=== PATIENT | female | born 1975 | race Caucasian/White ===

== ENCOUNTER 2016-10-06 13:35 | Emergency (ER) | payer SELFPAY | END 2016-10-06 15:02 | disposition home or self-care (01) | LOC: MADERS 13:35 | DX: J02.9 Acute pharyngitis, unspecified (principal); J30.1 Allergic rhinitis due to pollen; F17.210 Nicotine dependence, cigarettes, uncomplicated | CPT/HCPCS: 87081; 87430; 99283 ==

== ENCOUNTER 2016-12-09 10:11 | Emergency (ER) | payer MEDICAID, SELFPAY ==
[2016-12-09] MEDS ORDERED: Naproxen 500 MG TAB ONE (10:33)
[2016-12-09] MEDS ORDERED: AMOXicillin 250 MG CAP ONE (10:33)
== END 2016-12-09 10:40 | disposition home or self-care (01) ==
LOC: MADERS 10:11
DX: K04.7 Periapical abscess without sinus (principal); F17.210 Nicotine dependence, cigarettes, uncomplicated
CPT/HCPCS: 99283

== ENCOUNTER 2018-08-19 11:16 | Emergency (ER) | payer SELFPAY ==
[2018-08-19 11:56] LABS: Bilirubin Negative (Negative); Blood, Urine Large (Negative); Clarity Clear (Clear); Glucose, Urine (Dipstick) Negative (Negative); Leukocyte Negative (Negative); Nitrite Negative (Negative); Protein, Urine (Dipstick) Negative (Neg-Trace); Specific Gravity, Urine 1.015 (1.005-1.030); Urobilinogen 0.2 mg/dL (0.2-1.0)
[2018-08-19 12:14] LABS: Bacteria/HPF Rare-Few HPF (None Seen); RBC/HPF 0-3 HPF (0-3); Squamous Epithelial 0-3 HPF (0-3); WBC/HPF 0-3 HPF (0-3)
[2018-08-19] MEDS ORDERED: Ketorolac Tromethamine 30 MG/ML VIAL ONE (12:28)
[2018-08-19] MEDS ORDERED: diphenhydrAMINE 25 MG CAP ONE (12:28)
[2018-08-19] MEDS ORDERED: Prochlorperazine 10 MG/2 ML VIAL ONE (12:28)
== END 2018-08-19 12:58 | disposition home or self-care (01) ==
LOC: MADERS 11:16
DX: N93.9 Abnormal uterine and vaginal bleeding, unspecified (principal); F17.210 Nicotine dependence, cigarettes, uncomplicated; D50.0 Iron deficiency anemia secondary to blood loss (chronic)
CPT/HCPCS: 81001; 96372; J0780; J1885; Q0163

== ENCOUNTER 2019-03-19 15:02 | Emergency (ER) | payer SELFPAY ==
[2019-03-19] MEDS ORDERED: Metoclopramide HCl 10 MG/2 ML VIAL ONE (15:37)
[2019-03-19] MEDS ORDERED: Sodium Chloride 0.9% 1,000 ML ONE (15:38)
--- NOTE | 2019-03-19 15:51 | CT ---
HEAD CT WITHOUT CONTRAST: Date: 03/19/19 HISTORY: Pain. Fall. COMPARISON: None. FINDINGS: No parenchymal hemorrhage. No extra-axial hematoma. No midline shift. Basilar cisterns are patent. Br ain volume, age-appropriate. Cortical yuan-white matter differentiation preserved. No hydrocephalus. Adequate aeration of the sinuses and mastoid air cells. Calvarium is intact. IMPRESSION: No intracranial post-traumatic sequelae. POS: TPC
--- NOTE | 2019-03-19 16:18 | RAD ---
CHEST 2 VIEWS: Date: 03/19/19 HISTORY: Fall. Pain. COMPARISON: None. FINDINGS: Normal cardiac silhouette. Pulmonary vessels and hilum are normal. Costophrenic angles are clear. No consolidation or mass. No pneumothorax or osseous abnormalities. IMPRESSION: No acute cardiopulmonary process. POS: TPC
--- NOTE | 2019-03-19 16:19 | RAD ---
3 VIEWS RIGHT SHOULDER: Date: 03/19/19 HISTORY: Fall. Pain. FINDINGS: Glenohumeral joint space is preserved. No fracture or dislocation. Degenerative change of the acromio clavicular joint space. Visualized right ribs are unremarkable. IMPRESSION: No fracture or dislocation. POS: TPC
[2019-03-19 16:31] LABS: ALT (SGPT) 8 U/L (8-55); AST (SGOT) 15 U/L (5-34); Albumin 4.2 g/dL (3.5-5.0); Alkaline Phosphatase 95 U/L (40-150); Anion Gap 14 mmol/L (10-20); BUN (Urea Nitrogen) 4 mg/dL (7.0-18.7); Bilirubin, Total 0.2 mg/dL (0.2-1.2); Calc. Creatinine Clearance 0 mL/min (70-130); Calcium 9.1 mg/dL (7.8-10.44); Carbon Dioxide 27 mmol/L (22-29); Chloride 101 mmol/L (98-107); Estimated GFR-MDRD Greater than 90; Globulin 2.9 g/dL (2.4-3.5); Glucose 84 mg/dL (70-105); Lipase 10 U/L (8-78); Potassium 3.7 mmol/L (3.5-5.1); Protein, Total 7.1 g/dL (6.0-8.3); Sodium 138 mmol/L (136-145)
[2019-03-19 16:35] LABS: #Basophils 0.1 thou/uL (0.0-0.2); #Lymphocytes 0.9 thou/uL (1.20-3.40); #Monocytes 0.4 thou/uL (0.11-0.59); #Neutrophils 6.2 thou/uL (1.40-6.50); %Basophils 1.1 % (0.0-1.0); %Eosinophils 0.5 % (0.0-10.0); %Lymphocytes 11.8 % (21.0-51.0); %Monocytes 5.4 % (0.0-10.0); %Neutrophils 81.3 % (42.0-75.0); Anisocytosis MODERATE=16-30 cells (100X) (0-5/hpf); Hemoglobin 8.4 g/dL (12.0-16.0); Hypochromia SLIGHT = 6-15 cells (100X) (0-5/hpf); MDiff Complete? YES; Mean Corpuscular HGB CONC 30.5 g/dL (32.0-36.0); Mean Corpuscular Hemoglobin 21.6 pg (27.0-31.0); Mean Corpuscular Volume 70.8 fL (78.0-98.0); Microcytosis SLIGHT = 6-15 cells (100X) (0-5/hpf); Platelet Count 381 thou/uL (130-400); Poikilocytosis SLIGHT = 6-15 cells (100X) (0-5/hpf); RBC Distribution Width 18.1 % (11.5-14.5); Target Cells SLIGHT = 2-5 cells (100X) (0-1/hpf); White Blood Cell (WBC) Count 7.7 thou/uL (4.8-10.8)
== END 2019-03-19 17:42 | disposition home or self-care (01) ==
LOC: MADERS 15:02
DX: S20.211A Contusion of right front wall of thorax, initial encounter (principal); S40.011A Contusion of right shoulder, initial encounter; F17.210 Nicotine dependence, cigarettes, uncomplicated; W19.XXXA Unspecified fall, initial encounter
CPT/HCPCS: 70450; 71046; 80053; 82550; 83690; 84484; 85025; 96361; 96374; J2765; J7050

== ENCOUNTER 2020-06-06 08:24 | Emergency (ER) | payer SELFPAY ==
--- NOTE | 2020-06-06 09:22 | RAD ---
PA AND LATERAL VIEWS CHEST: Date: 06/06/2020 HISTORY: Cough. COMPARISON: 03/24/2019. FINDINGS: The heart size is normal. The lungs are well expanded without lobar consolidation, pneumothoraces, or pleural effusions. There are degenerative changes in the spine. IMPRESSION: No radiographic evidence of acute cardiopulmonary process. POS: AH
[2020-06-06 09:43] LABS: Hemoglobin 8.8 g/dL (12.0-16.0); Mean Corpuscular HGB CONC 29.8 g/dL (32.0-36.0); Mean Corpuscular Hemoglobin 19.9 pg (27.0-31.0); Mean Corpuscular Volume 66.8 fL (78.0-98.0); Mean Platelet Volume 7.6 fL (7.4-10.4); Platelet Count 401 thou/uL (130-400); RBC Distribution Width 17.5 % (11.5-14.5); Red Blood Cell (RBC) Count 4.43 mill/uL (4.20-5.40); White Blood Cell (WBC) Count 7.5 thou/uL (4.8-10.8)
[2020-06-06 09:55] LABS: ALT (SGPT) 9 U/L (8-55); AST (SGOT) 17 U/L (5-34); Albumin 4.6 g/dL (3.5-5.0); Alkaline Phosphatase 92 U/L (40-110); Anion Gap 17 mmol/L (10-20); BUN (Urea Nitrogen) 5 mg/dL (7.0-18.7); Bilirubin, Total 0.3 mg/dL (0.2-1.2); CK (CPK) 129 U/L (29-168); Calc. Creatinine Clearance 0 mL/min (70-130); Calcium 10.1 mg/dL (7.8-10.44); Carbon Dioxide 23 mmol/L (22-29); Chloride 103 mmol/L (98-107); Estimated GFR-MDRD Greater than 90; Globulin 3.2 g/dL (2.4-3.5); Glucose 84 mg/dL (70-105); Potassium 3.9 mmol/L (3.5-5.1); Protein, Total 7.8 g/dL (6.0-8.3); Sodium 139 mmol/L (136-145)
[2020-06-06 10:05] LABS: #Basophils 0.1 thou/uL (0.0-0.2); #Lymphocytes 1.1 thou/uL (1.20-3.40); #Monocytes 0.3 thou/uL (0.11-0.59); %Basophils 1.7 % (0.0-1.0); %Eosinophils 0.4 % (0.0-10.0); %Lymphocytes 14.2 % (21.0-51.0); %Monocytes 4.2 % (0.0-10.0); %Neutrophils 79.5 % (42.0-75.0); Hypochromia SLIGHT = 6-15 cells (100X) (0-5/hpf); MDiff Complete? YES; Microcytosis SLIGHT = 6-15 cells (100X) (0-5/hpf); Ovalocytes SLIGHT = 2-5 cells (100X) (0-1/hpf); Platelet Morphology Comment Appears Adequate
[2020-06-06] MEDS ORDERED: Acetaminophen 500 MG TAB ONE (10:38)
[2020-06-06 12:41] LABS: Carboxyhemoglobin (COHb) 3.9 gm% (0.0-3.0)
== END 2020-06-06 13:10 | disposition home or self-care (01) ==
LOC: MADERS 08:24
DX: T59.811A Toxic effect of smoke, accidental (unintentional), initial encounter (principal); R05 Cough; D64.9 Anemia, unspecified; F17.210 Nicotine dependence, cigarettes, uncomplicated; Y92.009 Unspecified place in unspecified non-institutional (private) residence as the place of occurrence of the external cause
CPT/HCPCS: 71046; 80053; 82375; 82550; 82805; 84484; 85025; 93005; 94760

== ENCOUNTER 2020-07-02 08:44 | Emergency (ER) | payer SELFPAY ==
--- NOTE | 2020-07-02 09:28 | RAD ---
XR Humerus Lt 2 View STANDARD INDICATION: Fall with left arm pain COMPARISON:None. FINDINGS: Bones: No acute fracture or subluxation is evident. Joints: No acute abnormality. Soft tissues: No radiopaque foreign body is evident. Visualized lung bolaños: Clear. IMPRESSION: No acute osseous abnormality.
--- NOTE | 2020-07-02 09:28 | RAD ---
XR Ankle Lt 3 View STANDARD INDICATION: 44-year-old female with fall and ankle pain COMPARISON: None. FINDINGS: Bones: Intact. Ankle mortise: Symmetric. Talar Dome: Intact. Subtalar joint: Normal. Visualized hindfoot: Normal. Periarticular soft tissues: Normal. IMPRESSION: 1. No acute fracture or subluxation demonstrated.
--- NOTE | 2020-07-02 09:29 | RAD ---
XR Elbow Lt 2 View INDICATION: Fall with left elbow pain COMPARISON:None. FINDINGS: Bones: No acute fracture or subluxation is evident.. Joints: No joint capsular distention. Radiocapitellar alignment appears within normal limits. Soft tissues: No radiopaque foreign body is evident. IMPRESSION: No acute osseous abnormality.
[2020-07-02] MEDS ORDERED: Ibuprofen 800 MG TAB ONE (09:31)
== END 2020-07-02 09:47 | disposition home or self-care (01) ==
LOC: MADERS 08:44
DX: S93.402A Sprain of unspecified ligament of left ankle, initial encounter (principal); S50.02XA Contusion of left elbow, initial encounter; D50.9 Iron deficiency anemia, unspecified; F17.210 Nicotine dependence, cigarettes, uncomplicated; Z79.899 Other long term (current) drug therapy; W01.0XXA Fall on same level from slipping, tripping and stumbling without subsequent striking against object, initial encounter

== ENCOUNTER 2020-08-04 10:02 | Emergency (ER) | payer SELFPAY ==
[2020-08-04 10:49] LABS: Pregnancy Test - Urine (BHCG) Negative (Negative); Pregu Control Background? CLEAR/WHITE (CLR/WHITE); Pregu Control Bar Appear? YES (CONTROL BAR); Specific Gravity 1.015 (1.002-1.036)
[2020-08-04 10:50] LABS: Bilirubin Negative (Negative); Blood, Urine Negative (Negative); Clarity Clear (Clear); Glucose, Urine (Dipstick) Negative (Negative); Ketone, Urine Negative (Negative); Leukocyte Negative (Negative); Nitrite Negative (Negative); Protein, Urine (Dipstick) Negative (Neg-Trace); Specific Gravity, Urine 1.015 (1.005-1.030); Urobilinogen 0.2 mg/dL (Less than 2); pH, Urine 5.5 (5.0-9.0)
== END 2020-08-04 11:18 | disposition home or self-care (01) ==
LOC: MADERS 10:02
DX: K59.00 Constipation, unspecified (principal); F17.210 Nicotine dependence, cigarettes, uncomplicated; D50.9 Iron deficiency anemia, unspecified
CPT/HCPCS: 81003; 81025; 99284

== ENCOUNTER 2021-01-10 08:06 | Emergency (ER) | payer SELFPAY ==
[2021-01-10] MEDS ORDERED: Ketorolac Tromethamine 30 MG/ML VIAL ONE (08:42)
[2021-01-10] MEDS ORDERED: predniSONE 20 MG TAB ONE ×2 (08:42→08:43)
== END 2021-01-10 08:57 | disposition home or self-care (01) ==
LOC: MADERS 08:06
DX: M54.5 Low back pain (principal); R51.9 Headache, unspecified; D50.9 Iron deficiency anemia, unspecified; F17.210 Nicotine dependence, cigarettes, uncomplicated; Z87.42 Personal history of other diseases of the female genital tract
CPT/HCPCS: 96372; 99283; J1885; J7512

== ENCOUNTER 2021-09-05 18:20 | Emergency (ER) | payer SELFPAY ==
[2021-09-05 18:48] LABS: Bilirubin Negative (Negative); Blood, Urine Negative (Negative); Glucose, Urine (Dipstick) Negative (Negative); Ketone, Urine Negative (Negative); Leukocyte Negative (Negative); Nitrite Negative (Negative); Protein, Urine (Dipstick) Negative (Neg-Trace); Urobilinogen 0.2 mg/dL (Less than 2); pH, Urine 6.5 (5.0-9.0)
[2021-09-05 18:55] LABS: Clarity Hazy (Clear); Specific Gravity, Urine 1.004 (1.002-1.036)
[2021-09-05 20:06] LABS: Specific Gravity 1.004 (1.002-1.036)
[2021-09-05 20:07] LABS: Pregu Control Background? CLEAR/WHITE (CLR/WHITE); Pregu Control Bar Appear? YES (CONTROL BAR)
[2021-09-05 20:10] LABS: Pregnancy Test - Urine (BHCG) Negative (Negative)
[2021-09-05] MEDS ORDERED: Sulfameth/Trimethoprim DS 800-160mg TAB ONE (20:21)
[2021-09-05] MEDS ORDERED: Naproxen 500 MG TAB ONE (20:21)
== END 2021-09-05 20:26 | disposition home or self-care (01) ==
LOC: MADERS 18:20
DX: N30.00 Acute cystitis without hematuria (principal); M54.41 Lumbago with sciatica, right side; M54.42 Lumbago with sciatica, left side; D64.9 Anemia, unspecified; F17.210 Nicotine dependence, cigarettes, uncomplicated
CPT/HCPCS: 81003; 81025; 87086; 99283